=== PATIENT | female | born 1985 | race African-American/Black ===

== ENCOUNTER 2021-03-27 18:32 | Emergency (ER) | payer OTHER ==
[~2021-03-27] VITALS: Ht 165.1 cm; Wt 102.1 kg
[2021-03-27 18:40] VITALS: BP 141/88
[2021-03-27] MEDS ORDERED: ONDANSETRON HCL4 M2 PO (18:57)
== END 2021-03-27 19:13 | disposition home or self-care (01) ==
LOC: ER 18:32
DX: O21.0 Mild hyperemesis gravidarum (principal); Z3A.01 Less than 8 weeks gestation of pregnancy; J45.909 Unspecified asthma, uncomplicated; I10 Essential (primary) hypertension